=== PATIENT | male | born 1965 | race Caucasian/White ===

== ENCOUNTER 2017-07-05 15:58 | Emergency (ER) | payer OTHER ==
[2017-07-05] MEDS: KETOROLAC 60 MG INJ IM (16:25)
[2017-07-05 16:36] LABS: ADD UMIC YES; UR ASCORBIC ACID NEGATIVE (NEGATIVE); UR BILIRUBIN (Dip) NEGATIVE (NEGATIVE); UR BLOOD (Dip) NEGATIVE (NEGATIVE); UR CLARITY CLEAR (CLEAR); UR COLOR YELLOW (YELLOW); UR GLUCOSE (Dip) NEGATIVE (NEGATIVE); UR KETONES (Dip) NEGATIVE (NEGATIVE); UR LEUKOCYTE ESTERASE (Dip) NEGATIVE Leu/ul (NEGATIVE); UR NITRITE (Dip) NEGATIVE (NEGATIVE); UR RBC 0 /HPF (0-5); UR SPECIFIC GRAVITY (Dip) 1.024 (1.003-1.030); UR TOTAL PROTEIN (Dip) 1+ mg/dl (NEGATIVE); UR UROBILINOGEN (Dip) NEGATIVE (NEGATIVE); UR WBC 0 /HPF (0-5)
== END 2017-07-05 17:54 | disposition home or self-care (01) ==
LOC: FTE 15:58
DX: M54.5 Low back pain (principal); E11.9 Type 2 diabetes mellitus without complications; F17.210 Nicotine dependence, cigarettes, uncomplicated; Z79.84 Long term (current) use of oral hypoglycemic drugs
CPT/HCPCS: 72100; 81001; 96372; 99284-25

== ENCOUNTER 2018-07-06 11:26 | Inpatient (IN) | payer OTHER ==
[2018-07-06] MEDS ORDERED: NITROGLYCERIN (SL) 0.4 MG TAB SL (12:00)
[2018-07-06 12:12] LABS: ADD MAN DIFF? NO
[2018-07-06 12:13] LABS: WHITE BLOOD COUNT 8.5 10^3/ul (4.8-10.8)
[2018-07-06 12:13] LABS: BASOPHIL # 0.1 10^3/ul (0.0-0.1); BASOPHILS % 0.9 % (0.0-2.0); EOSINOPHILS # 0.1 10^3/ul (0.0-0.5); EOSINOPHILS % 0.8 % (0.0-7.0); HEMATOCRIT 43.1 % (42.0-52.0); HEMOGLOBIN 14.8 g/dl (14.0-18.0); LYMPHOCYTES # 1.8 10^3/ul (0.8-2.9); LYMPHOCYTES % 20.9 % (15.0-51.0); MEAN CORPUSCULAR HGB CONC 34.3 g/dl (32.0-37.0); MEAN CORPUSCULAR VOLUME 90.2 fl (82.0-101.0); MEAN PLATELET VOLUME 10.1 fl (7.4-10.4); MONOCYTE # 0.4 10^3/ul (0.3-0.9); NEUTROPHIL # 6.1 10^3/ul (1.6-7.5); PLATELET COUNT 227 10^3/UL (140-415); RED BLOOD COUNT 4.78 10^6/ul (4.70-6.10); RED CELL DISTRIBUTION WIDTH 12.7 % (11.5-14.5)
[2018-07-06 12:18] LABS: INR 0.96; PARTIAL THROMBOPLASTIN TIME 30.2 Sec (23.0-35.0); PROTIME 12.9 Sec (11.9-14.9)
[2018-07-06] MEDS: ONDANSETRON 4 MG INJ IV (12:20)
[2018-07-06] MEDS: morphine 4 MG/ML VIAL IV (12:21)
[2018-07-06 12:23] LABS: ALANINE AMINOTRANSFERASE 12 IU/L (13-69); ALBUMIN 4.3 g/dl (3.3-4.9); ALBUMIN/GLOBULIN RATIO 1.34; ALKALINE PHOSPHATASE 94 IU/L (42-121); ANION GAP 13 (5-13); ASPARTATE AMINO TRANSFERASE 24 IU/L (15-46); BILIRUBIN,INDIRECT 0.2 mg/dl (0-1.1); BILIRUBIN,TOTAL 0.2 mg/dl (0.2-1.3); BLOOD UREA NITROGEN 10 mg/dl (7-20); CALCIUM 9.3 mg/dl (8.4-10.2); CARBON DIOXIDE 20 mmol/L (21-31); CHLORIDE 108 mmol/L (97-110); CREATININE 0.65 mg/dl (0.61-1.24); Estimated GFR > 60 mL/min (>60); GLUCOSE 155 mg/dl (70-220); LIPASE 453 U/L (23-300); POTASSIUM 3.6 mmol/L (3.5-5.1); SODIUM 141 mmol/L (135-144); TOTAL PROTEIN 7.5 g/dl (6.1-8.1)
[2018-07-06 12:34] LABS: TROPONIN-I < 0.012 ng/ml (0.000-0.120)
[2018-07-06] MEDS: IOHEXOL 350MG/ML 50 ML BTL (13:45)
[2018-07-06] MEDS: IOHEXOL 100 ML (13:45)
[2018-07-06] MEDS: SOD CHLORIDE 0.9% 100 ML (13:46)
[2018-07-06 16:17] LABS: TROPONIN-I < 0.012 ng/ml (0.000-0.120)
[2018-07-06] MEDS: ASPIRIN 325 MG TAB PO (16:34)
[2018-07-06] MEDS: NITROGLYCERIN 2% 1 GM OINT PKT TD (16:35)
[2018-07-06] MEDS ORDERED: ONDANSETRON 4 MG INJ IV ×2 (17:30→22:30)
[2018-07-06] MEDS ORDERED: ACETAMINOPHEN 325 MG TAB PO (17:30)
[2018-07-06 21:47] LABS: CREATINE KINASE 110 IU/L (23-200)
[2018-07-06 22:00] LABS: CK INDEX 0.7; CK-MB 0.74 ng/ml (0.0-2.4); TROPONIN-I < 0.012 ng/ml (0.000-0.120)
[2018-07-06] MEDS ORDERED: GLUCOSE GEL 15 GRAM TUBE BUCCAL (23:00)
[2018-07-06] MEDS ORDERED: GLUCAGON 1 MG INJ IM (23:00)
[2018-07-06] MEDS ORDERED: DEXTROSE 50% 50 ML SYRINGE IV ×2 (23:00)
[2018-07-06] MEDS ORDERED: GLUCOSE GEL 15 GRAM TUBE PO ×2 (23:00)
[2018-07-07] MEDS: ACCU-CHEK XX (02:00)
[2018-07-07 07:34] LABS: CREATINE KINASE 97 IU/L (23-200)
[2018-07-07 07:41] LABS: LIPASE 588 U/L (23-300)
[2018-07-07 07:42] LABS: CK INDEX 0.7; CK-MB 0.69 ng/ml (0.0-2.4); TROPONIN-I < 0.012 ng/ml (0.000-0.120)
[2018-07-07] MEDS: INSULIN ASPART [NOVOLOG] 3 ML PEN SC ×2 (07:54→11:50)
[2018-07-07] MEDS: HYDROXYCHLOROQUINE 200 MG TAB PO (08:01)
[2018-07-07] MEDS: ASPIRIN (EC) 81 MG TAB PO (08:01)
[2018-07-07] MEDS: morphine 2 MG INJ IV (08:02)
[2018-07-07 10:37] LABS: TRIGLYCERIDES 228 mg/dl (0-149)
[2018-07-07] MEDS: REGADENOSON 0.4 MG/5 ML SYG (13:52)
[2018-07-07] MEDS ORDERED: ATORVASTATIN 20 MG TAB PO (21:00)
== END 2018-07-07 15:40 | disposition home or self-care (01) | DRG 313 ==
LOC: E/R 11:26 → TEL 17:19
PROC: C22G1ZZ Tomographic (Tomo) Nuclear Medicine Imaging of Myocardium using Technetium 99m (Tc-99m) (ICD-10-PCS; principal; 2018-07-07)
DX: R07.89 Other chest pain (principal); I10 Essential (primary) hypertension; E11.9 Type 2 diabetes mellitus without complications; M54.89 Other dorsalgia; R74.8 Abnormal levels of other serum enzymes
CPT/HCPCS: 36415; 71045; 71275; 75635; 76700; 78452; 80053; 82550; 82553; 82962; 83690; 84478; 84484; 85025; 85610; 85730; 93005; 93017; 93306; 96374; 96375; 99285-25

== ENCOUNTER 2018-12-13 04:40 | Emergency (ER) | payer OTHER ==
[2018-12-13] MEDS: KETOROLAC 30 MG INJ IM (06:24)
== END 2018-12-13 06:47 | disposition home or self-care (01) ==
LOC: FTE 04:40
DX: M54.42 Lumbago with sciatica, left side (principal); F17.210 Nicotine dependence, cigarettes, uncomplicated; E11.9 Type 2 diabetes mellitus without complications; Z79.84 Long term (current) use of oral hypoglycemic drugs
CPT/HCPCS: 96372; 99284-25